=== PATIENT | male | born 1975 | race Caucasian/White ===

== ENCOUNTER → 2017-08-15 08:29 | Outpatient (CLI) | payer MEDICAID, SELFPAY ==
[2017-08-15 18:13] LABS: Basophils # 0.1 K/mm3 (0-0.2); Basophils % 0.6 % (0.1-2.0); Eosinophils # 0.3 K/mm3 (0.0-0.4); Eosinophils % 2.3 % (0.1-12.0); Hematocrit 45.2 % (42.0-52.0); Hemoglobin 14.8 g/dL (14.1-18.0); Lymphocytes # 3.3 K/mm3 (0.7-4.5); Lymphocytes % 29.2 K/mm3 (10-50); Mean Corpuscular HGB Conc 32.7 g/dL (31.8-35.4); Mean Corpuscular Volume 88.6 fl (80-94); Mean Platelet Volume 7.7 fl (7.4-10.4); Monocytes # 0.9 K/mm3 (0.1-1.0); Monocytes % 7.8 % (1.7-9.3); Neutrophils # 6.8 K/mm3 (1.8-7.8); Neutrophils % 60.1 % (37.0-80.0); Platelet Count 380 K/mm3 (142-424); White Blood Count 11.3 K/mm3 (4.8-10.8)
[2017-08-15 18:31] LABS: Hemoglobin A1C 5.3 % (0.0-7.0)
[2017-08-15 18:38] LABS: Alanine Aminotransferase 66 U/L (12-78); Albumin Level 4.1 gm/dL (3.4-5.0); Albumin/Globulin Ratio 1.1 (1.1-1.8); Alkaline Phosphatase 114 U/L (46-116); Anion Gap 10.9 mEq/L (5-15); Aspartate Amino Transferase 37 U/L (15-37); Bilirubin,Total 0.4 mg/dL (0.2-1.0); Blood Urea Nitrogen 14 mg/dL (7-18); Calcium 9.5 mg/dL (8.5-10.1); Carbon Dioxide 27 mmol/L (21.0-32.0); Chloride 103 mmol/L (98-107); Cholesterol 190 mg/dL (140-200); Creatinine,Serum 0.78 mg/dL (0.70-1.30); Estimated Glomerular Filt Rate 108 ml/min (>60); Free T4 (Free Thyroxine) 0.98 ng/dl (0.76-1.46); GFR (African American) 131 ML/MIN (>60); Globulin 3.8 gm/dl (1.3-3.2); Glucose 94 mg/dL (74-106); HDL Cholesterol 47 mg/dL (27-67); LDL Cholesterol 102 mg/dL (0-130); Potassium 3.9 mmoL/L (3.5-5.1); Sodium 137 mmol/L (136-145); Thyroid Stimulating Hormone 3.26 uIU/ml (0.358-3.740); Total Protein,Serum 7.9 gm/dL (6.4-8.2); Triglycerides 203 mg/dL (30-200); VLDL Cholesterol 41 mg/dL (0-40)
[2017-08-19 15:37] LABS: Vitamin D 25 Hydroxy 23.3 ng/mL (30.0-100.0)
== END ==
PROVIDERS: Visit Provider Nurse Practitioner Family
DX: R53.83 Other fatigue (principal); R20.0 Anesthesia of skin; M25.521 Pain in right elbow; L08.9 Local infection of the skin and subcutaneous tissue, unspecified; Z79.899 Other long term (current) drug therapy; E55.9 Vitamin D deficiency, unspecified
CPT/HCPCS: 80053; 80061; 82652; 83036; 84439; 84443; 85025

== ENCOUNTER 2018-12-25 17:53 | Observation (INO) ==
--- NOTE | 2018-12-25 18:07 | Emergency Department Note ---
ED Disposition Clinical Impression: JENNIE (acute kidney injury), Dehydration Disposition: Admitted as Observation Condition on Discharge: Good Referrals: Provider,Referral, [Primary Care Provider] - Time of Disposition: 20:41 - Critical Care Critical Care Time: No Attestation: On , the high probability of a clinically significant, sudden or life threatening deterioration of the following system(s) required my full and direct attention, intervention and personal management. The time I documented below is in addition to time spent performing reported procedures but includes the following listed in this critical care notation. Medical Decision Making - Medical Records Medical records reviewed: Yes: I reviewed the patient's medical records. - Gui Inquiry Pt receiving controlled substance: No Gui was queried for this patient: No Vital Signs: 12/25/18 17:53 12/25/18 18:30 12/25/18 19:29 Temperature 97.7 F Temperature Source Oral Pulse Rate [Right Radial] 117 H 87 93 H Respiratory Rate 20 20 18 Blood Pressure [Right Arm] 146/93 H 139/79 147/98 H Blood Pressure Mean [Right Arm] 110 99 114 Blood Pressure Source [Right Arm] Automatic Cuff Automatic Cuff Blood Pressure Position [Right Arm] Sitting Supine 02 Sat by Pulse Oximetry 98 98 98 Oxygen Delivery Method Room Air Room Air - Lab Data Lab results reviewed: Yes: I reviewed the patient's lab results. Lab Results 12/25/18 18:20: WBC 13.9 H, RBC 6.02, Hgb 17.6, Hct 51.6, MCV 85.6, MCH 29.3, MCHC 34.2, RDW 13.3, Plt Count 432 H, MPV 6.4 L, Neut % (Auto) 81.7 H, Lymph % ( Auto) 14.2, [place] % (Auto) 3.6, Eos % (Auto) 0.1, Baso % (Auto) 0.3, Neut # (Auto) 11.4 H, Lymph # (Auto) 2.0, [place] # (Auto) 0.5, Eos # (Auto) 0.0, Baso # (Auto) 0.0 12/25/18 18:20: Sodium 135 L, Potassium 3.6, Chloride 95 L, Carbon Dioxide 21, Anion Gap 22.6 H, BUN 32 H, Creatinine 2.86 H, Estimated Creat Clear 44, Estimated GFR 24 L, Est GFR ( Amer) 29 L, Glucose 205 H, Calcium 10.7 H, Total Bilirubin 1.1 H, AST 35, ALT 40, Alkaline Phosphatase 103, Total Protein 9.8 H, Albumin 5.6 H, Globulin 4.2 H, Albumin/Globulin Ratio 1.3, Amylase 49, Lipase 121 12/25/18 19:24: Urine Color Yellow, Urine Appearance Clear, Urine pH 5.5, Ur Specific [place] >= 1.030, Urine Protein 1+, Urine Glucose (UA) Negative, Urine Ketones Trace, Urine Blood Trace-l, Urine Nitrate Negative, Urine Bilirubin Negative, Urine Urobilinogen 1.0, Ur Leukocyte Esterase Negative, Urine RBC Occasional, Urine WBC Occasional, Ur Squamous Epith Cells Occasional, Urine Bacteria Trace Result diagrams: 12/25/18 18:20 12/25/18 18:20 Orders (Tests/Meds): ED MEDICATIONS Generic Name Dose Route Start Last Admin Trade Name Freq PRN Reason Stop Dose Admin Sodium Chloride 1,000 mls @ 999 mls/hr 12/25/18 18:30 12/25/18 18:28 Sod Chlor 0.9% 1000ml Bag IV 12/25/18 19:30 999 mls/hr .Q1H1M GABRIELA Administration Sodium Chloride 1,000 mls @ 999 mls/hr 12/25/18 19:30 12/25/18 19:28 Sod Chlor 0.9% 1000ml Bag IV 12/25/18 20:30 999 mls/hr .Q1H1M GABRIELA Administration Discontinued Medications Generic Name Dose Route Start Last Admin Trade Name Freq PRN Reason Stop Dose Admin Ketorolac Tromethamine 30 mg 12/25/18 18:26 12/25/18 18:28 Toradol 30mg/Ml Vial IV 12/25/18 18:27 30 mg ONCE ONE Administration Ondansetron HCl 4 mg 12/25/18 18:26 12/25/18 18:28 Zofran 4mg/2ml Vial IV 12/25/18 18:27 4 mg ONCE ONE Administration ORDERS Category Date Time Status CT abdomen pelvis wo con Stat Cat Scan 12/25/18 18:30 Taken CK [Creatine Kinase] Stat Lab 12/25/18 20:36 Ordered Hemoglobin A1C Stat Lab 12/25/18 20:38 Ordered ECG Request by /Braden Stat Y 12/25/18 18:30 Ordered - Physician Consults Physician Consulted: sue Time: 20:40 Reason -: Admission General Adult HPI - General Chief complaint: Weakness Stated complaint: Cramping all over, vomiting Time Seen by Provider: 12/25/18 18:31 Mode of Arrival: Ambulatory Source of Information: Patient Limitations: No Limitations Description of Symptoms (Recalled from ER Triage Doc. by RN): Patient sweating, complaints of crampping everywhere, vomiting - History of Present Illness HPI narrative: states he's dehydrated , vomiting and working in heat. diffuse cramping. - Related Data Previous Rx's Medication Instructions Recorded prednisone 10 mg tablet 10 mg PO BID #10 tab 08/15/17 cholecalciferol (vitamin D3) 5,000 5,000 unit PO DAILY #30 cap 08/20/17 unit capsule ergocalciferol (vitamin D2) 50,000 50,000 unit PO QWEEK #4 cap 08/20/17 unit capsule Allergies Allergy/AdvReac Type Severity Reaction Status Date / Time No Known Allergies Allergy Verified 08/15/17 08:[address] [facility] History - Hepatitis A Screen Drug use history?: No High risk sexual behaviors?: No History of sexually transmitted infection?: No Currently employed?: No Childcare worker?: No Do you have indoor plumbing?: Yes Do you have electricity?: Yes Attestation statement:: This patient has been screened for Hepatitis A risk factors. I have reviewed the patient's past medical history: Yes Other Surgeries: Yes: Other Amputation: No Fractures: Yes Comment: LEFT ELBOW REPAIR - Social History Educational Level: Completed High School Smoking Status: Former smoker #Yrs smoked (if former smoker): 12 Alcohol Intake: never Substance Use Type: marijuana Occupational Status: unemployed Housing: house Household Members: significant other Family Hx:: Cancer ROS Obtained: Yes All systems reviewed & no additional complaints - Constitutional Constitutional: Reports fatigue, Denies fever(s), Reports weakness - Gastrointestinal Gastrointestingal: Reports: abdominal pain, nausea, vomiting. Denies: diarrhea - Musculoskeletal Musculoskeletal: Reports muscle cramps, Reports muscle weakness, Reports muscle aches - Neurologic Neurologic: Denies headache(s) Physical Exam - General General appearance: alert, in no apparent distress - Head Head exam: atraumatic, normocephalic, normal inspection - Eye Eye exam: Present: normal appearance - Neck Neck exam: Present: normal inspection, full ROM, trachea midline. Absent: meningismus, lymphadenopathy - Chest Chest inspection: Present: normal inspection, symmetric chest wall rise. Absent: tenderness - Respiratory Respiratory exam: Present: normal lung sounds bilaterally, respiratory distress, wheezes - Cardiovascular Cardiovascular exam: Present: normal rhythm, tachycardia. Absent: JVD - Abdominal Exam Abdominal exam: Present: soft, normal bowel sounds. Absent: distention, tenderness, guarding - Extremities Exam Extremities exam: Present: normal inspection, full ROM, normal capillary refill. Absent: calf tenderness - Back Exam Back exam: Present: normal inspection. Absent: tenderness - Neurological Exam Neurological exam: Present: alert, oriented X3 - Psychiatric Psychiatric exam: Present: normal affect, normal mood - Skin Skin exam: Present: warm, dry, intact, normal color - Lymphatic Lymphatic Findings: no adenopathy
[2018-12-25 18:34] LABS: Basophils % 0.3 % (0.1-2.0); Eosinophils % 0.1 % (0.1-12.0); Hematocrit 51.6 % (42.0-52.0); Hemoglobin 17.6 g/dL (14.1-18.0); Lymphocytes % 14.2 % (10-50); Mean Corpuscular HGB Conc 34.2 g/dL (31.8-35.4); Mean Corpuscular Volume 85.6 fl (80-94); Mean Platelet Volume 6.4 fl (7.4-10.4); Monocytes # 0.5 K/mm3 (0.1-1.0); Monocytes % 3.6 % (1.7-9.3); Neutrophils # 11.4 K/mm3 (1.8-7.8); Neutrophils % 81.7 % (37.0-80.0); Platelet Count 432 K/mm3 (142-424); Red Blood Count 6.02 M/mm3 (4.60-6.20); Red Cell Distribution Width 13.3 % (11.5-17.5); White Blood Count 13.9 K/mm3 (4.8-10.8)
[2018-12-25 18:46] LABS: Albumin Level 5.6 gm/dL (3.4-5.0); Albumin/Globulin Ratio 1.3 (1.1-1.8); Anion Gap 22.6 mEq/L (5-15); Bilirubin,Total 1.1 mg/dL (0.2-1.0); Calcium 10.7 mg/dL (8.5-10.1); Globulin 4.2 gm/dl (1.3-3.2); Total Protein,Serum 9.8 gm/dL (6.4-8.2)
[2018-12-25 19:29] LABS: Microscopic, Urine URINE MICROSCOPIC (MICROSCOPIC)
[2018-12-25 19:35] LABS: Appearance,Urine CLEAR (Clear); Blood, Urine TRACE-L (Negative); Color,Urine YELLOW (Yellow); Glucose,Urine (UA) Negative (Negative); Ketones,Urine TRACE (Negative); Leukocyte Esterase,Urine Negative (Negative); PH,Urine 5.5 (5.0-8.5); Protein,Urine 1+ (Negative); Specific Gravity, Urine >= 1.030 (1.005-1.030)
[2018-12-25 19:43] LABS: Bilirubin,Urine Negative (Negative)
[2018-12-25 19:45] LABS: Bacteria,Urine Trace /lpf; RBC,Urine Occasional #/hpf (0-3); Squamous Epithelial Cell,Urine Occasional #/hpf (0-5); WBC,Urine Occasional #/hpf (0-3)
[2018-12-26 07:19] LABS: Basophils # 0.1 K/mm3 (0-0.2); Basophils % 0.5 % (0.1-2.0); Eosinophils # 0.1 K/mm3 (0.0-0.4); Eosinophils % 1.2 % (0.1-12.0); Hematocrit 41.9 % (42.0-52.0); Lymphocytes # 3.6 K/mm3 (0.7-4.5); Lymphocytes % 37.9 % (10-50); Mean Corpuscular HGB Conc 34.1 g/dL (31.8-35.4); Mean Corpuscular Volume 86.8 fl (80-94); Mean Platelet Volume 6.3 fl (7.4-10.4); Monocytes # 0.9 K/mm3 (0.1-1.0); Monocytes % 9.4 % (1.7-9.3); Neutrophils # 4.9 K/mm3 (1.8-7.8); Platelet Count 320 K/mm3 (142-424); Red Blood Count 4.83 M/mm3 (4.60-6.20); Red Cell Distribution Width 13.3 % (11.5-17.5); White Blood Count 9.5 K/mm3 (4.8-10.8)
[2018-12-26 07:28] LABS: Anion Gap 13.7 mEq/L (5-15)
[2018-12-26 07:36] LABS: Hemoglobin 14.1 g/dL (14.1-18.0)
[2018-12-26 07:43] LABS: Calcium 8.4 mg/dL (8.5-10.1)
--- NOTE | 2018-12-26 08:35 | H&P/Discharge Summary ---
General - General Admission date:: 12/25/18 Discharge date: 12/26/18 *Admission Date: 12/25/18 *Chief complaint: dehydration *History of present illness: pt with dec po intake and was seen in the ed tates he's dehydrated , vomiting and working in heat. diffuse cramping.pt was found to have acute kidney injury with elevated bun/cr over baseline - pt was admitted for iv hydration [facility] History I have reviewed the patient's past medical history: Yes Medical History: Denies:: Cancer, Diabetes Mellitus Type 1, Diabetes Mellitus Type 2, MRSA *Have you ever received a pneumonia vaccine?: No *Have you received a flu vaccine this season?: No Laterality Cases: Left: Other Other Surgeries: Yes: Other Amputation: No Fractures: Yes - *Social History Educational Level: Completed Grade School Smoking Status: Current every day smoker Tobacco Type: cigarettes # Packs/Day (cigarettes): 1 #Yrs smoked (if former smoker): 12 Alcohol Intake: current Alcohol Intake Frequency:: holidays/special occasions only Substance Use Type: marijuana Last Used Substance: days (ago) *Occupational Status:: other Housing: house Household Members: significant other *Travel in the last 8 weeks: Inside the [place] - Psychiatric History Expresses thoughts of harming self/others: None Suicide Plan Description: No Plan Family Hx:: Cancer, Hypertension, Stroke Review of Systems - Review of Systems Review of systems:: pertinent systems reviewed and negative unless documented below - Constitutional Reports fatigue, Reports malaise - Eyes Denies change in vision - ENT Denies sore throat - *Cardiovascular Denies chest pain at rest - *Respiratory Denies cough - *Gastrointestinal Denies abdominal pain - *Musculoskeletal Denies joint pain - Integumentary/Breasts Denies rash - *Neurologic Reports dizziness, Reports weakness, Denies confusion, Denies localized weakness, Denies headache(s) Exam Vital signs and Labs for Last 24 Hours: Temp Pulse Resp BP Pulse Ox 98.3 F 71 18 133/67 97 12/26/18 04:00 12/26/18 04:00 12/26/18 04:00 12/26/18 04:00 12/26/18 04:00 Laboratory Results - last 24 hr 12/25/18 18:00: Total Creatine Kinase 895 H* 12/25/18 18:00: Hemoglobin A1c 5.6 12/25/18 18:20: WBC 13.9 H, RBC 6.02, Hgb 17.6, Hct 51.6, MCV 85.6, MCH 29.3, MCHC 34.2, RDW 13.3, Plt Count 432 H, MPV 6.4 L, Neut % (Auto) 81.7 H, Lymph % (Auto) 14.2, [place] % (Auto) 3.6, Eos % (Auto) 0.1, Baso % (Auto) 0.3, Neut # (Auto) 11.4 H, Lymph # (Auto) 2.0, [place] # (Auto) 0.5, Eos # (Auto) 0.0, Baso # (Auto) 0.0 12/25/18 18:20: Sodium 135 L, Potassium 3.6, Chloride 95 L, Carbon Dioxide 21, Anion Gap 22.6 H, BUN 32 H, Creatinine 2.86 H, Estimated Creat Clear 44, Estimated GFR 24 L, Est GFR ( Amer) 29 L, Glucose 205 H, Calcium 10.7 H, Total Bilirubin 1.1 H, AST 35, ALT 40, Alkaline Phosphatase 103, Total Protein 9.8 H, Albumin 5.6 H, Globulin 4.2 H, Albumin/Globulin Ratio 1.3, Amylase 49, Lipase 121 12/25/18 19:24: Urine Color Yellow, Urine Appearance Clear, Urine pH 5.5, Ur Specific [place] >= 1.030, Urine Protein 1+, Urine Glucose (UA) Negative, Urine Ketones Trace, Urine Blood Trace-l, Urine Nitrate Negative, Urine Bilirubin Negative, Urine Urobilinogen 1.0, Ur Leukocyte Esterase Negative, Urine RBC Occasional, Urine WBC Occasional, Ur Squamous Epith Cells Occasional, Urine Bacteria Trace 12/26/18 06:24: WBC 9.5 D, RBC 4.83, Hgb 14.1 D, Hct 41.9 L, MCV 86.8, MCH 29.6, MCHC 34.1, RDW 13.3, Plt Count 320 D, MPV 6.3 L, Neut % (Auto) 51.0, Lymph % (Auto) 37.9, [place] % (Auto) 9.4 H, Eos % (Auto) 1.2, Baso % (Auto) 0.5, Neut # (Auto) 4.9, Lymph # (Auto) 3.6, [place] # (Auto) 0.9, Eos # (Auto) 0.1, Baso # (Auto) 0.1 12/26/18 06:24: Sodium 140, Potassium 3.7, Chloride 104, Carbon Dioxide 26 D, Anion Gap 13.7, BUN 28 H, Creatinine 1.14 D, Estimated Creat Clear 110, Estimated GFR 69, Est GFR ( Amer) 84 D, Glucose 86 D, Calcium 8.4 L D I & O for Last 24 hours: Intake & Output 12/23/18 12/24/18 12/25/18 12/26/18 11:59 11:59 11:59 11:59 Intake Total 2356 / 2356 Output Total 700 / 700 Balance 1656 / 1656 Weight 210 lb 2 oz - Constitutional no acute distress, obese - *Routine HEENT Exam Head: Present: normocephalic Eye: Present: EOMI, PERRL ENT: Present: mucous membranes dry - *Routine Neck Exam Present: supple - *Routine Respiratory Exam Present: CTA bilaterally - *Routine Cardiovascular Exam Present: RRR, murmur - *Routine Abdominal Exam Present: soft - *Routine Extremities Exam Present: full ROM - *Routine Skin Exam Present: intact - *Routine Neurological Exam Present: alert, oriented X3, CN II-XII intact - Routine Psychiatric Exam Present: normal affect Hospital Course Hospital Course: pt has did well with ivf and mariza diet this am and is ambulatory and has improved labs and will be d/c to be followed as op next week Results Labs on day of discharge: Labs from last 24 hours 12/26/18 12/26/18 12/25/18 06:24 06:24 19:24 WBC 9.5 D RBC 4.83 Hgb 14.1 D Hct 41.9 L MCV 86.8 MCH 29.6 MCHC 34.1 RDW 13.3 Plt Count 320 D MPV 6.3 L Neut % (Auto) 51.0 Lymph % (Auto) 37.9 [place] % (Auto) 9.4 H Eos % (Auto) 1.2 Baso % (Auto) 0.5 Neut # (Auto) 4.9 Lymph # (Auto) 3.6 [place] # (Auto) 0.9 Eos # (Auto) 0.1 Baso # (Auto) 0.1 Sodium 140 Potassium 3.7 Chloride 104 Carbon Dioxide 26 D Anion Gap 13.7 BUN 28 H Creatinine 1.14 D Estimated Creat Clear 110 Estimated GFR 69 Est GFR ( Amer) 84 D Glucose 86 D Hemoglobin A1c Calcium 8.4 L D Total Bilirubin AST ALT Alkaline Phosphatase Total Creatine Kinase Total Protein Albumin Globulin Albumin/Globulin Ratio Amylase Lipase Urine Color Yellow Urine Appearance Clear Urine pH 5.5 Ur Specific [place] >= 1.030 Urine Protein 1+ Urine Glucose (UA) Negative Urine Ketones Trace Urine Blood Trace-l Urine Nitrate Negative Urine Bilirubin Negative Urine Urobilinogen 1.0 Ur Leukocyte Esterase Negative Urine RBC Occasional Urine WBC Occasional Ur Squamous Epith Cells Occasional Urine Bacteria Trace 12/25/18 12/25/18 12/25/18 18:20 18:20 18:00 WBC 13.9 H RBC 6.02 Hgb 17.6 Hct 51.6 MCV 85.6 MCH 29.3 MCHC 34.2 RDW 13.3 Plt Count 432 H MPV 6.4 L Neut % (Auto) 81.7 H Lymph % (Auto) 14.2 [place] % (Auto) 3.6 Eos % (Auto) 0.1 Baso % (Auto) 0.3 Neut # (Auto) 11.4 H Lymph # (Auto) 2.0 [place] # (Auto) 0.5 Eos # (Auto) 0.0 Baso # (Auto) 0.0 Sodium 135 L Potassium 3.6 Chloride 95 L Carbon Dioxide 21 Anion Gap 22.6 H BUN 32 H Creatinine 2.86 H Estimated Creat Clear 44 Estimated GFR 24 L Est GFR ( Amer) 29 L Glucose 205 H Hemoglobin A1c 5.6 Calcium 10.7 H Total Bilirubin 1.1 H AST 35 ALT 40 Alkaline Phosphatase 103 Total Creatine Kinase Total Protein 9.8 H Albumin 5.6 H Globulin 4.2 H Albumin/Globulin Ratio 1.3 Amylase 49 Lipase 121 Urine Color Urine Appearance Urine pH Ur Specific [place] Urine Protein Urine Glucose (UA) Urine Ketones Urine Blood Urine Nitrate Urine Bilirubin Urine Urobilinogen Ur Leukocyte Esterase Urine RBC Urine WBC Ur Squamous Epith Cells Urine Bacteria 12/25/18 18:00 WBC RBC Hgb Hct MCV MCH MCHC RDW Plt Count MPV Neut % (Auto) Lymph % (Auto) [place] % (Auto) Eos % (Auto) Baso % (Auto) Neut # (Auto) Lymph # (Auto) [place] # (Auto) Eos # (Auto) Baso # (Auto) Sodium Potassium Chloride Carbon Dioxide Anion Gap BUN Creatinine Estimated Creat Clear Estimated GFR Est GFR ( Amer) Glucose Hemoglobin A1c Calcium Total Bilirubin AST ALT Alkaline Phosphatase Total Creatine Kinase 895 H* Total Protein Albumin Globulin Albumin/Globulin Ratio Amylase Lipase Urine Color Urine Appearance Urine pH Ur Specific [place] Urine Protein Urine Glucose (UA) Urine Ketones Urine Blood Urine Nitrate Urine Bilirubin Urine Urobilinogen Ur Leukocyte Esterase Urine RBC Urine WBC Ur Squamous Epith Cells Urine Bacteria DS: Diagnosis - Discharge Diagnosis (1) JENNIE (acute kidney injury) Status: Acute (2) Dehydration Status: Acute (3) Diverticulosis Status: Acute (4) Obesity Status: Chronic Discharge Plan - Patient Discharge Instructions Patient Instructions: Dehydration, DI for Dehydration -- Adult, Acute Renal Failure - Follow up Plan Home Medications: Home Medications Medication Instructions Recorded Confirmed Type No Known Home Medications 12/25/18 12/25/18 History Prescriptions/Medication Reconciliation: No Action No Known Home Medications - Problem Reconciliation Problems Reviewed?: Yes
== END 2018-12-26 09:16 | disposition home or self-care (01) ==
LOC: ER 17:53 → 2ND 17:53
PROVIDERS: ADMIT Emergency Medicine; ATTEND Emergency Medicine
DX: K57.30 Diverticulosis of large intestine without perforation or abscess without bleeding; Z68.31 Body mass index [BMI] 31.0-31.9, adult; E66.9 Obesity, unspecified; E86.0 Dehydration; N17.9 Acute kidney failure, unspecified
CPT/HCPCS: 74176; 80048; 80053; 81001; 82150; 82550; 83036; 83690; 85025; 93005; 96365; 96375; 99285; G0378; J2405

== ENCOUNTER → 2020-08-03 14:06 | Outpatient (CLI) | payer BC, SELFPAY ==
[2020-08-03 14:24] LABS: Barbiturates Screen,Urine Negative ng/ml (<200); Benzodiazepines Screen,Urine Negative ng/ml (<200)
[2020-08-03 14:25] LABS: Cannabinoid Screen,Urine Positive ng/ml (<50); Cocaine Screen,Urine Negative ng/ml (<300)
[2020-08-03 14:26] LABS: Methadone Screen,Urine Negative ng/ml (<300)
[2020-08-03 14:27] LABS: Opiate Screen,Urine Negative ng/ml (<300)
[2020-08-03 14:28] LABS: Phencyclidine Screen,Urine Negative ng/ml (<25)
[2020-08-13 18:18] LABS: Amphetamine Positive (.); Amphetamines Positive (.); Methamphetamine Positive (.)
[2020-08-15 02:13] LABS: Amphetamine (GC/MS) 13915 ng/mL (Cutoff=500); Methamphetamine (GC/MS) >3000 ng/mL (Cutoff=500)
== END ==
PROVIDERS: Visit Provider Family Medicine
DX: F41.9 Anxiety disorder, unspecified (principal); Z79.899 Other long term (current) drug therapy
CPT/HCPCS: 80305; 80324

== ENCOUNTER → 2022-06-03 09:15 | Outpatient (CLI) | payer BC, SELFPAY ==
[2022-06-03 16:19] LABS: Amphetamine/Metha Screen,Urine Negative ng/ml (<1000); Benzodiazepines Screen,Urine Negative ng/ml (<200)
[2022-06-03 16:20] LABS: Barbiturates Screen,Urine Negative ng/ml (<200); Methadone Screen,Urine Negative ng/ml (<300)
[2022-06-03 16:21] LABS: Cannabinoid Screen,Urine Negative ng/ml (<50)
[2022-06-03 16:22] LABS: Cocaine Screen,Urine Negative ng/ml (<300); Opiate Screen,Urine Negative ng/ml (<300)
[2022-06-03 16:23] LABS: Phencyclidine Screen,Urine Negative ng/ml (<25)
== END ==
PROVIDERS: PCP Family Medicine; Visit Provider Family Medicine
DX: Z79.899 Other long term (current) drug therapy (principal)
CPT/HCPCS: 80305

== ENCOUNTER → 2023-04-30 07:20 | Outpatient (CLI) | payer BC, SELFPAY ==
[2023-04-30 20:38] LABS: Amphetamine/Metha Screen,Urine Negative ng/ml (<1000); Benzodiazepines Screen,Urine Negative ng/ml (<200)
[2023-04-30 20:39] LABS: Barbiturates Screen,Urine Negative ng/ml (<200); Methadone Screen,Urine Negative ng/ml (<300)
[2023-04-30 20:40] LABS: Cannabinoid Screen,Urine Negative ng/ml (<50)
[2023-04-30 20:41] LABS: Cocaine Screen,Urine Negative ng/ml (<300)
[2023-04-30 20:42] LABS: Opiate Screen,Urine Negative ng/ml (<300); Phencyclidine Screen,Urine Negative ng/ml (<25)
== END ==
PROVIDERS: PCP Family Medicine; Visit Provider Family Medicine
DX: Z79.899 Other long term (current) drug therapy (principal)
CPT/HCPCS: 80305

== ENCOUNTER 2024-11-01 11:55 | Outpatient (CLI) | payer MEDICAID, SELFPAY ==
[2024-11-01 18:35] LABS: Basophils # 0.1 K/mm3 (0-0.2); Basophils % 0.7 % (0.1-2.0); Eosinophils # 0.3 Kmm3 (0.0-0.4); Eosinophils % 3.8 % (0.1-12.0); Hematocrit 39.5 % (42.0-52.0); Hemoglobin 13.7 g/dL (14.1-18.0); Immature Granulocytes # 0.01 10^3uL; Immature Granulocytes % 0.1 %; Lymphocytes # 3.1 K/mm3 (0.7-4.5); Mean Corpuscular HGB Conc 34.7 g/dL (31.8-35.4); Mean Corpuscular Hemoglobin 28.8 pg (27.0-31.2); Mean Platelet Volume 8.8 fl (7.4-10.4); Monocytes # 0.6 K/mm3 (0.1-1.0); Monocytes % 8.3 % (1.7-9.3); Neutrophils # 2.9 K/mm3 (1.8-7.8); Neutrophils % 42.1 % (37.0-80.0); Nucleated Red Blood Cells # 0 10^3/uL; Nucleated Red Blood Cells % 0 %; Platelet Count 256 K/mm3 (142-424); Red Blood Count 4.76 M/mm3 (4.60-6.20); Red Cell Distribution Width 12.6 % (11.5-17.5); Red Cell Distribution Width-SD 38.1 fL; White Blood Count 6.8 K/mm3 (4.8-10.8)
[2024-11-01 19:47] LABS: Alanine Aminotransferase 18 U/L (12-78); Albumin/Globulin Ratio 1.6 (1.1-1.8); Alkaline Phosphatase 61 U/L (38-126); Anion Gap 5.9 mEq/L (5-15); Aspartate Amino Transferase 23 U/L (17-59); Bilirubin,Total 0.4 mg/dl (0.2-1.3); Blood Urea Nitrogen 12 mg/dl (9-20); Calcium 9.6 mg/dl (8.4-10.2); Carbon Dioxide 28 mmol/L (22.0-30.0); Chloride 106 mmol/L (98-107); Chol/HDL Ratio 5.8 (1-3.5); Cholesterol 163 mg/dl (140-200); Estimated Glomerular Filt Rate 119 ml/min (>60); GFR (African American) 144 ML/MIN (>60); Globulin 2.5 g/dL (1.3-3.2); Glucose 84 mg/dl (74-100); HDL Cholesterol 28 mg/dl (40-60); Potassium 3.9 mmoL/L (3.5-5.1); Sodium 136 mmol/L (136-145); Total Protein,Serum 6.5 g/dl (6.3-8.2); Triglycerides 317 mg/dl (30-150); VLDL Cholesterol 63 mg/dL (0-40)
[2024-11-01 20:00] LABS: Direct LDL Cholesterol 70.42 mg/dL (100-129)
[2024-11-01 20:27] LABS: HIV Combo NEGATIVE (Negative); Prostate Specific Ag Screen 0.3 ng/ml (0.0-4.0)
[2024-11-01 20:35] LABS: Hepatitis C Ab Qual. W/ RFX NEGATIVE (Negative)
[2024-11-01 21:09] LABS: Hemoglobin A1C 5.1 % (4.0-6.0)
[2024-11-03 10:11] LABS: Hepatitis B Surface Antigen Negative (Negative)
== END 2024-11-01 23:59 | disposition home or self-care (01) ==
LOC: LAB.DROPOF 11-02 10:25
PROVIDERS: PCP Family Medicine; Visit Provider Family Medicine
DX: E66.09 Other obesity due to excess calories (principal); K57.90 Diverticulosis of intestine, part unspecified, without perforation or abscess without bleeding; Z68.33 Body mass index [BMI] 33.0-33.9, adult; Z11.59 Encounter for screening for other viral diseases
CPT/HCPCS: 80053; 80061; 83036; 85025; 86803; 87340; 87389; G0103

== ENCOUNTER 2024-11-17 14:54 | Outpatient (CLI) | payer MEDICAID, SELFPAY ==
--- NOTE | 2024-11-17 15:30 | CT_ITS ---
FINAL REPORT TECHNIQUE: Axial images were obtained from the lung apex to the mid abdomen by computed tomography. This study was performed with techniques to keep radiation doses as low as reasonably achievable (ALARA). Individualized dose reduction techniques using automated exposure control or adjustment of mA and/or kV according to the patient's size were employed. CLINICAL HISTORY: lung cancer screening 05/20 ppd x 30 years FINDINGS: CHEST CT LOW DOSE CTDI vol (mGy): 2.90 DLP (mGy-cm): 112.55 There is no axillary adenopathy. There is a calcified right hilar lymph node. The heart is normal in size. There is no pericardial or pleural effusion. There is a small nodule in the right upper lobe measuring 3 mm well-seen on image 28 of series 4. Limited images of the upper abdomen are unremarkable. IMPRESSION: Small right upper lobe nodule. Lung RADS category 2. Recommend 12 month follow-up low-dose chest CT. Reviewed, Interpreted and Dictated by Glen Dickinson MD Transcribed by Alana Oconnor Authenticated and [facility]
== END 2024-11-17 23:59 | disposition home or self-care (01) ==
LOC: RAD 14:55
PROVIDERS: PCP Family Medicine; Visit Provider Family Medicine
DX: R91.1 Solitary pulmonary nodule (principal); Z12.2 Encounter for screening for malignant neoplasm of respiratory organs; Z72.0 Tobacco use
CPT/HCPCS: 71271